=== PATIENT | male | born 1975 | race Hispanic/Latino ===

== ENCOUNTER 2018-03-07 14:51 | Inpatient (IN) | payer OTHER ==
[2018-03-07 14:57] VITALS: BMI 32.1
[2018-03-07] MEDS ORDERED: Sodium Chloride 0.9% 1,000 ML IV STA ×2 (15:11→17:06)
--- NOTE | 2018-03-07 15:34 | ED PDOC ---
Arrival/HPI - General Chief Complaint: GI Problem Time Seen by Provider: 03/07/18 15:10 Historian: Patient - History of Present Illness Narrative History of Present Illness (Text): 03/07/18 15:27 42yo male with pmhx of hypertension bib EMS for crampy pain. Patient states he has been having generalized crampy pain since this morning. Notes that he recently started going to the gym and took a diet pill yesterday for the first time. Notes the he vomited on his arrival to the Emergency department. States he feels better currently. Denies chest pain, SOB, diaphoresis, palpitation, CAMPUZANO, abdominal pain, diarrhea, constipation, fever, chills, headache, dizziness , focal weakness, any other complaint. Past Medical History - Provider Review Nursing Documentation Reviewed: Yes - Cardiac Hx Hypertension: Yes - Pulmonary Hx Respiratory Disorders: No - Neurological Hx Neurological Disorder: No - HEENT Hx HEENT Disorder: No - Renal Hx Renal Disorder: No - Endocrine/Metabolic Hx Endocrine Disorders: No - Hematological/Oncological Hx Blood Disorders: No - Musculoskeletal/Rheumatological Hx Arthritis: Yes (rt knee) - Gastrointestinal Hx Gastrointestinal Disorders: No - Genitourinary/Gynecological Hx Genitourinary Disorders: No - Psychiatric Hx Psychophysiologic Disorder: No Hx Substance Use: No Family/Social History - Physician Review Nursing Documentation Reviewed: Yes Family/Social History: Unknown Family HX Smoking Status: Never Smoked Hx Alcohol Use: No Hx Substance Use: No Allergies/Home Meds Allergies/Adverse Reactions: Allergies No Known Allergies Allergy (Verified 03/07/18 14:57) Review of Systems - Physician Review All systems were reviewed & negative as marked: Yes - Review of Systems Constitutional: Normal Eyes: Normal ENT: Normal Respiratory: Normal Cardiovascular: Normal Gastrointestinal: Nausea, Vomiting. absent: Abdominal Pain, Constipation, Diarrhea, Hematemesis Genitourinary Male: Normal Musculoskeletal: Other (Crampy pain) Skin: Normal Neurological: Normal Endocrine: Normal Hemo/Lymphatic: Normal Psychiatric: Normal Physical Exam Vital Signs Reviewed: Yes Vital Signs Temp Pulse Resp BP Pulse Ox 03/07/18 17:07 72 19 100 03/07/18 15:02 97.5 F L 93 H 22 151/74 H 97 Temperature: Afebrile Blood Pressure: Normal Pulse: Regular Respiratory Rate: Normal Appearance: Positive for: Well-Appearing, Non-Toxic, Comfortable Pain Distress: None Mental Status: Positive for: Alert and Oriented X 3 - Systems Exam Head: Present: Atraumatic, Normocephalic Pupils: Present: PERRL Extroacular Muscles: Present: EOMI Conjunctiva: Present: Normal Mouth: Present: Moist Mucous Membranes Neck: Present: Normal Range of Motion Respiratory/Chest: Present: Clear to Auscultation, Good Air Exchange. No: Respiratory Distress, Accessory Muscle Use Cardiovascular: Present: Regular Rate and Rhythm, Normal S1, S2. No: Murmurs Abdomen: Present: Other (Soft). No: Tenderness, Distention, Peritoneal Signs, Rebound, Guarding, McBurney's Point Tender, Rovsing's Sign Present Back: Present: Normal Inspection Upper Extremity: Present: Normal Inspection. No: Cyanosis, Edema Lower Extremity: Present: Normal Inspection. No: Edema Neurological: Present: GCS=15, CN II-XII Intact, Speech Normal, Motor Func Grossly Intact, Normal Sensory Function, Normal Cerebellar Funct, Memory Normal , Other (No focal neurological deficit) Skin: Present: Warm, Dry, Normal Color. No: Rashes Psychiatric: Present: Alert, Oriented x 3, Normal Insight, Normal Concentration Medical Decision Making ED Course and Treatment: 03/07/18 15:50 42 yo male bib for generalized crampy pain since morning. Vomited on arrival. Labs VBG Blood culture CAR, CPK 1L NS, Zofran, Pepcid Cardiac monitoring PT likely in rhabdo. EKG NSR @ 79bpm NSTEMI as read by me will reassess 03/07/18 17:35 Lab was reviewed. KELVIN with metabolic acidosis noted, leukocytosis, and elevated lactate was noted. Pt was tachypenic on arrival. He met the criteria for sepsis and it was called. Pt was hydrated with 2L of NS, pt in rhabdo and likely the cause of his KLEVIN. Potassium was repleted Broad spectrum abx was ordered Blood culture and urine culture pending Chest X-Ray NAD Pt will be admitted Case was DW Dr. Hobbs and she accepted pt to her service. Requested Dr. Merida consult. ICU Electronic System Engineer Dr. Solomon saw patient in Emergency department, but didn't take pt. Pt was admitted to Tele. - Lab Interpretations Lab Results: 03/07/18 15:00 03/07/18 15:00 Lab Results 03/07/18 16:40: pO2 48, VBG pH 7.41, VBG pCO2 36.0 L, VBG HCO3 22.8, VBG Total CO2 23.9, VBG O2 Sat (Calc) 81.0 H, VBG Base Excess -1.4 L, VBG Potassium 3.7, Glucose 126 H, Lactate 4.5 H*, FiO2 21.0, Sodium 141.0, Chloride 97.0 L, Venous Blood Potassium 3.7 03/07/18 15:00: Sodium 142, Potassium 3.2 L, Chloride 93 L, Carbon Dioxide 23, Anion Gap 29 H, BUN 41 H, Creatinine 3.8 H, Est GFR ( Amer) 21, Est GFR ( Non-Af Amer) 17, Random Glucose 190 H, Calcium 11.4 H, Total Bilirubin 1.0, AST 53, ALT 53, Alkaline Phosphatase 85, Lactate Dehydrogenase 681, Total Creatine Kinase 674 H, CK-MB (CK-2) 5.9 H, CK-MB (CK-2) % 0.9 L, Troponin I < 0.01, Total Protein 9.9 H, Albumin 5.7 H, Globulin 4.2, Albumin/Globulin Ratio 1.4, Amylase 98, Lipase 100 03/07/18 15:00: PT 11.0, INR 0.97, APTT 25.2 03/07/18 15:00: WBC 19.4 H, RBC 5.17, Hgb 16.6, Hct 46.3, MCV 89.6, MCH 32.1, MCHC 35.9, RDW 13.3, Plt Count 382, MPV 10.0, Gran % 75.0 H, Lymph % (Auto) 18.2 L, [place] % (Auto) 6.0, Eos % (Auto) 0.5 L, Baso % (Auto) 0.3, Gran # 14.56 H , Lymph # (Auto) 3.5 H, [place] # (Auto) 1.2 H, Eos # (Auto) 0.1, Baso # (Auto) 0.05 - RAD Interpretation Radiology Orders: 03/07/18 16:46 CHEST PORTABLE [RAD] Stat - Medication Orders Current Medication Orders: Sodium Chloride (Sodium Chloride 0.9%) 1,000 mls @ 999 mls/hr IV .Q1H1M STA Stop: 03/07/18 18:06 Last Admin: 03/07/18 17:23 Dose: 999 mls/hr eMAR Start Stop Document 03/07/18 17:23 [email or web address] (Rec: 03/07/18 17:23 [email or web address] [id number]) Intravenous Solution Start Date 03/07/18 Start Time 17:23 Vancomycin HCl (Vancomycin 1gm) 1 gm in 250 mls @ 167 mls/hr IVPB STAT STA PRN Reason: Protocol Stop: 03/07/18 18:30 Discontinued Medications Famotidine (Pepcid) 20 mg IVP STAT STA Stop: 03/07/18 15:11 Last Admin: 03/07/18 15:29 Dose: 20 mg IVP Administration Document 03/07/18 15:29 [email or web address] (Rec: 03/07/18 15:29 [email or web address] [id number]) Charges for Administration # of IVP Administrations 1 Sodium Chloride (Sodium Chloride 0.9%) 1,000 mls @ 999 mls/hr IV .Q1H1M STA Stop: 03/07/18 16:11 Last Admin: 03/07/18 15:29 Dose: 999 mls/hr eMAR Start Stop Document 03/07/18 15:29 [email or web address] (Rec: 03/07/18 15:29 [email or web address] [id number]) Intravenous Solution Start Date 03/07/18 Start Time 15:29 Piperacillin Sod/Tazobactam Sod (Zosyn 3.375 In Ns 100ml) 100 mls @ 200 mls/hr IVPB STAT STA PRN Reason: Protocol Stop: 03/07/18 17:34 Last Admin: 03/07/18 17:21 Dose: 200 mls/hr eMAR Start Stop Document 03/07/18 17:21 [email or web address] (Rec: 03/07/18 17:21 [email or web address] [id number]) Intravenous Solution Start Date 03/07/18 Start Time 17:21 Ondansetron HCl (Zofran Inj) 4 mg IVP STAT STA Stop: 03/07/18 15:11 Last Admin: 03/07/18 15:29 Dose: 4 mg IVP Administration Document 03/07/18 15:29 [email or web address] (Rec: 03/07/18 15:29 [email or web address] [id number]) Charges for Administration # of IVP Administrations 1 Potassium Chloride (K-Dur 20 Meq Er Tab) 40 meq PO STAT STA Stop: 03/07/18 16:22 Last Admin: 03/07/18 16:56 Dose: 40 meq Disposition/Present on Arrival - Present on Arrival Any Indicators Present on Arrival: No History of DVT/PE: No History of Uncontrolled Diabetes: No Urinary Catheter: No History of Decub. Ulcer: No History Surgical Site Infection Following: None - Disposition Have Diagnosis and Disposition been Completed?: Yes Diagnosis: Acute renal failure, Sepsis Disposition: HOSPITALIZED Disposition Time: 17:15 Patient Plan: Admission Patient Problems: Current Active Problems Problem Status Onset Acute renal failure Acute Sepsis Acute Condition: STABLE Discharge Instructions (ExitCare): Sepsis (ED) Referrals: PCP,NO [Primary Care Provider] - Follow up with primary Forms: [employer] - Social Platform (Hungarian)
[2018-03-07 15:56] LABS: ALB/GLOB RATIO 1.4 (1.1-1.8); ALBUMIN 5.7 g/dL (3.0-4.8); ALT/SGPT 53 U/L (7-56); AMYLASE 98 U/L (35-125); AST/SGOT 53 U/L (17-59); BLOOD UREA NITROGEN 41 mg/dL (7-21); CALCIUM 11.4 mg/dL (8.4-10.5); GFR AFRICAN-AMERICAN 21; GFR NON-AFRICAN AMERICAN 17; LIPASE 100 U/L (23-300)
[2018-03-07 15:57] LABS: BASO # 0.05 K/mm3 (0.0-2.0); BASO % 0.3 % (0.0-3.0); EOS # 0.1 (0.0-0.7); EOS % 0.5 % (1.5-5.0); GRAN # 14.56 (1.4-6.5); HEMOGLOBIN 16.6 g/dL (14.0-18.0); LYMPH # 3.5 (1.2-3.4); LYMPH % 18.2 % (22.0-35.0); MEAN CELL VOLUME 89.6 fl (80.0-105.0); MEAN CORPUSCULAR HEMOGLOBIN 32.1 pg (25.0-35.0); MEAN CORPUSCULAR HGB CONC 35.9 g/dl (31.0-37.0); MONO # 1.2 (0.1-0.6); RBC 5.17 10^6/uL (3.5-6.1); RED CELL DISTRIBUTION WIDTH 13.3 % (11.5-14.5); WHITE BLOOD COUNT 19.4 10^3/ul (4.5-11.0)
[2018-03-07 16:01] LABS: INR 0.97; PARTIAL THROMBOPLASTIN TIME 25.2 Seconds (25.1-36.5)
[2018-03-07 16:07] LABS: TROPONIN I < 0.01 ng/mL
[2018-03-07 16:15] LABS: CK MB% 0.9 % (2.5-3.0); CK-MB 5.9 ng/mL (0.0-3.6)
[2018-03-07] MEDS ORDERED: Potassium Chloride 20 mEq ER Tab PO STA (16:21)
[2018-03-07 16:50] LABS: VENOUS BLOOD GAS BASE EXCESS -1.4 mmol/L (0.0-2.0); VENOUS BLOOD GAS PO2 48 mm/Hg (30-55); VENOUS BLOOD PH 7.41 (7.32-7.43)
[2018-03-07] MEDS ORDERED: Vancomycin 1gm in NS 250ml 1 GM/250 ML BAG IVPB STA (17:01)
[2018-03-07] MEDS ORDERED: Piperacillin/Tazobact 3.375 gm 100 ML IVPB STA (17:05)
--- NOTE | 2018-03-07 17:52 | CP.PCM.CON ---
<Willow Coffey - Last Filed: 03/07/18 17:41> History of Present Illness - History of Present Illness History of Present Illness: Willow Coffey, PGY-1 ICU Consult Note This is a 42 year old male with PMH of HT, spinal stenosis and chronic back pain presenting to the ER for muscle cramping, nausea, and vomiting. 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 He also has started going to the gym over the last week performing aerobic exercises for 30-40 minutes. Additionally, he began taking diet pills recently. He states he has been drinking clear water throughout the day but denies drinking beverages with electrolytes. In the ED, he was given one liter of NS, pepcid, zofran and potassium chloride. He is currently asymptomatic and denies CP, palpitations, SOB, muscle cramps, numbness , tingling, urinary complaints, fevers, chills, nausea, vomiting and headaches. 12 point ROS noted here, otherwise unremarkable. PMH: as above SH: former smoker, quit 4 years ago. Smoked 1 ppd for 23 years. Currently drinks 2-3 beers per day Sx: right leg ACL repair FH: father had prostate cancer, grandfather had stomach cancer, hypertension in family Meds: as per MAR Past Patient History - Past Social History Smoking Status: Never Smoked - CARDIAC Hx Hypertension: Yes - PULMONARY Hx Respiratory Disorders: No - NEUROLOGICAL Hx Neurological Disorder: No - HEENT Hx HEENT Problems: No - RENAL Hx Chronic Kidney Disease: No - ENDOCRINE/METABOLIC Hx Endocrine Disorders: No - HEMATOLOGICAL/ONCOLOGICAL Hx Blood Disorders: No - MUSCULOSKELETAL/RHEUMATOLOGICAL Hx Arthritis: Yes (rt knee) - GASTROINTESTINAL Hx Gastrointestinal Disorders: No - GENITOURINARY/GYNECOLOGICAL Hx Genitourinary Disorders: No - PSYCHIATRIC Hx Psychophysiologic Disorder: No Hx Substance Use: No - SURGICAL HISTORY Hx Surgeries: No Meds Allergies/Adverse Reactions: Allergies Allergy/AdvReac Type Severity Reaction Status Date / Time No Known Allergies Allergy Verified 03/07/18 14:57 - Medications Medications: Current Medications Sodium Chloride (Sodium Chloride 0.9%) 1,000 mls @ 999 mls/hr IV .Q1H1M STA Stop: 03/07/18 18:06 Last Admin: 03/07/18 17:23 Dose: 999 mls/hr Vancomycin HCl (Vancomycin 1gm) 1 gm in 250 mls @ 167 mls/hr IVPB STAT STA PRN Reason: Protocol Stop: 03/07/18 18:30 Physical Exam - Head Exam Head Exam: ATRAUMATIC, NORMAL INSPECTION - Eye Exam Eye Exam: EOMI Pupil Exam: PERRL - ENT Exam ENT Exam: Mucous Membranes Dry - Neck Exam Neck exam: Positive for: Normal Inspection - Respiratory Exam Respiratory Exam: Clear to Auscultation Bilateral, NORMAL BREATHING PATTERN - Cardiovascular Exam Cardiovascular Exam: RRR, +S1, +S2. absent: Tachycardia - GI/Abdominal Exam GI & Abdominal Exam: Normal Bowel Sounds, Soft. absent: Firm, Guarding - Extremities Exam Extremities exam: Positive for: normal inspection, pedal pulses present - Back Exam Back exam: NORMAL INSPECTION. absent: CVA tenderness (L), CVA tenderness (R) - Neurological Exam Neurological exam: Alert, CN II-XII Intact, Oriented x3 - Psychiatric Exam Psychiatric exam: Normal Affect - Skin Skin Exam: Dry, Normal Color Results - Vital Signs Recent Vital Signs: Last Vital Signs Temp 97.5 F L 03/07/18 15:02 Pulse 72 03/07/18 17:07 Resp 19 03/07/18 17:07 BP 151/74 H 03/07/18 15:02 Pulse Ox 100 03/07/18 17:07 - Labs Result Diagrams: 03/07/18 15:00 03/07/18 15:00 Labs: Laboratory Results - last 24 hr 03/07/18 03/07/18 03/07/18 15:00 15:00 15:00 WBC 19.4 H RBC 5.17 Hgb 16.6 Hct 46.3 MCV 89.6 MCH 32.1 MCHC 35.9 RDW 13.3 Plt Count 382 MPV 10.0 Gran % 75.0 H Lymph % (Auto) 18.2 L [place] % (Auto) 6.0 Eos % (Auto) 0.5 L Baso % (Auto) 0.3 Gran # 14.56 H Lymph # (Auto) 3.5 H [place] # (Auto) 1.2 H Eos # (Auto) 0.1 Baso # (Auto) 0.05 PT 11.0 INR 0.97 APTT 25.2 pO2 VBG pH VBG pCO2 VBG HCO3 VBG Total CO2 VBG O2 Sat (Calc) VBG Base Excess VBG Potassium Glucose Lactate FiO2 Sodium 142 Potassium 3.2 L Chloride 93 L Carbon Dioxide 23 Anion Gap 29 H BUN 41 H Creatinine 3.8 H Est GFR ( Amer) 21 Est GFR (Non-Af Amer) 17 Random Glucose 190 H Calcium 11.4 H Total Bilirubin 1.0 AST 53 ALT 53 Alkaline Phosphatase 85 Lactate Dehydrogenase 681 Total Creatine Kinase 674 H CK-MB (CK-2) 5.9 H CK-MB (CK-2) % 0.9 L Troponin I < 0.01 Total Protein 9.9 H Albumin 5.7 H Globulin 4.2 Albumin/Globulin Ratio 1.4 Amylase 98 Lipase 100 Venous Blood Potassium 03/07/18 16:40 WBC RBC Hgb Hct MCV MCH MCHC RDW Plt Count MPV Gran % Lymph % (Auto) [place] % (Auto) Eos % (Auto) Baso % (Auto) Gran # Lymph # (Auto) [place] # (Auto) Eos # (Auto) Baso # (Auto) PT INR APTT pO2 48 VBG pH 7.41 VBG pCO2 36.0 L VBG HCO3 22.8 VBG Total CO2 23.9 VBG O2 Sat (Calc) 81.0 H VBG Base Excess -1.4 L VBG Potassium 3.7 Glucose 126 H Lactate 4.5 H* FiO2 21.0 Sodium 141.0 Potassium Chloride 97.0 L Carbon Dioxide Anion Gap BUN Creatinine Est GFR ( Amer) Est GFR (Non-Af Amer) Random Glucose Calcium Total Bilirubin AST ALT Alkaline Phosphatase Lactate Dehydrogenase Total Creatine Kinase CK-MB (CK-2) CK-MB (CK-2) % Troponin I Total Protein Albumin Globulin Albumin/Globulin Ratio Amylase Lipase Venous Blood Potassium 3.7 Assessment & Plan - Assessment and Plan (Free Text) Assessment: This is a 42 year old male with PMH of HT, spinal stenosis and chronic back pain being consulted by the ICU team for KELVIN secondary to rhabdomyolysis secondary to dehydration/heat exhaustion/aerobic exercise. Plan: Neuro: -maintain normothermia -AAO x3, moving extremities spontaneously past midline Cardio: -maintain MAP>65 -currently not tachycardic, with pulse in the 70s Lungs: -SaO2 >90% -supplementary O2 PRN -CXR pending Renal: -maintain euvolemia -avoid nephrotoxic agents, hypochloremia -replace electrolytes as needed. Potassium given for hypokalemia -BUN/Cr is 41/3.8. KELVIN secondary to rhabdomyolysis. Will likely resolve with fluids -VBG shows lactate of 4.5. Will monitor Heme: -Hg today is 16.6 WNL Endo: -maintain euglycemia ID: -WBC is 19.4 today, afebrile. Will monitor -blood culture pending -GI: -LFT's WNL -Currently NPO <KirstenalyPatrick - Last Filed: 03/07/18 18:16> Meds - Medications Medications: Current Medications Acetaminophen (Tylenol 325mg Tab) 650 mg PO Q6H PRN PRN Reason: Fever >100.4 F Vancomycin HCl (Vancomycin 1gm) 1 gm in 250 mls @ 167 mls/hr IVPB STAT STA PRN Reason: Protocol Stop: 03/07/18 18:30 Dextrose/Sodium Chloride (Dextrose 5%/0.45% Ns 1000 Ml) 1,000 mls @ 150 mls/hr IV .Q6H40M VALERIE Ondansetron HCl (Zofran Inj) 4 mg IVP Q6H PRN PRN Reason: Nausea/Vomiting Pantoprazole Sodium (Protonix Ec Tab) 40 mg PO 0630 VALERIE Results - Vital Signs Recent Vital Signs: Last Vital Signs Temp 97.9 F 03/07/18 18:05 Pulse 72 03/07/18 18:05 Resp 18 03/07/18 18:05 BP 116/69 03/07/18 18:05 Pulse Ox 99 03/07/18 18:05 - Labs Result Diagrams: 03/07/18 15:00 03/07/18 15:00 Attending/Attestation - Attestation I have personally seen and examined this patient.: Yes I have fully participated in the care of the patient.: Yes I have reviewed all pertinent clinical information: Yes Notes (Text): 03/07/18 18:11 The patient was seen and examined at the bedside. Patient care was discussed with resident Medical records, lab studies, and imaging were reviewed and management issues were discussed and formulated. Agree with above treatment plans as outlined in 's note with addition of the following: KELVIN \\ Rhabdomyolisis \\ Dehydration \\ Electrolite Abnormalities \\ -hemodynamic monitoring to maintain MAP>65; currently stable -f\\u serial ECG and CE -o2 supplementation to maintain Spo2>90 Pao2>60; currently comfortable on room air -f\\u Bun\\Cr and U\\o; continue IVF with NS -renal team eval; monitor and replace e-lites; renal US -PO diet as tolerated and aspiration precautions -f\\u CPK -DVT prophylaxis Patient remains hemodynamically stable in no respiratory distress , comfortably speaking full sentences on room air when examined. The "cramps" which caused pt to initially present to ED have now resolved. Pt will not benefit from ICU level of care at this time. Please reconsult if condition changes or necessary
--- NOTE | 2018-03-07 18:34 | RAD ---
Date of service: 03/07/2018 HISTORY: admission COMPARISON: No prior. FINDINGS: LUNGS: No active pulmonary disease. PLEURA: No significant pleural effusion identified, no pneumothorax apparent. CARDIOVASCULAR: Normal. OSSEOUS STRUCTURES: No significant abnormalities. VISUALIZED UPPER ABDOMEN: Normal. OTHER FINDINGS: None. IMPRESSION: No active disease.
[2018-03-07 18:39] LABS: HDL CHOLESTEROL 70 mg/dL (29-60)
[2018-03-07 18:49] LABS: LDL CHOLESTEROL 150 mg/dL (0-129)
[2018-03-07] MEDS: Dextrose 5%/0.45% NS 1,000 ML IV SCH (20:28)
[2018-03-07 20:33] LABS: VENOUS BLOOD GAS BASE EXCESS 2.2 mmol/L (0.0-2.0); VENOUS BLOOD GAS PO2 27 mm/Hg (30-55); VENOUS BLOOD PH 7.37 (7.32-7.43)
[2018-03-07 20:50] LABS: URINE BILIRUBIN NEGATIVE (NEGATIVE); URINE BLOOD MODERATE (NEGATIVE); URINE GLUCOSE (UA) NEGATIVE (NEGATIVE); URINE LEUKOCYTE ESTERASE NEGATIVE Leu/uL (NEGATIVE); URINE PROTEIN 30 mg/dL (<30 mg/dL); URINE UROBILINOGEN 0.2 E.U./dL (<1 E.U./dL)
[2018-03-07 21:14] LABS: URINE APPEARANCE CLEAR (CLEAR); URINE COLOR YELLOW (YELLOW)
[2018-03-07 21:54] LABS: URINE BACTERIA SMALL (NEG); URINE EPITHELIAL CELLS 0 - 2 /hpf (0-5)
[2018-03-07] MEDS ORDERED: Pneumococcal 23-Valent Vaccine IM ONE (22:42)
--- NOTE | 2018-03-08 01:01 | PCM.SEPTIC ---
Sepsis Progress Note - Reassessment Type Date of Evaluation: 03/08/18 Time of Evaluation: 01:00 Reassessment Type: Non-invasive reassessment - Non Invasive Reassessment Were the most recent vital sign reviewed: Yes Vital Sign (Latest): Temp Pulse Resp BP Pulse Ox 97.8 F 64 18 109/66 98 03/08/18 00:01 03/08/18 00:01 03/08/18 00:01 03/08/18 00:01 03/08/18 00:01 Cardiovascular: Yes: Regular Rate, Rhythm Respiratory: Yes: Normal Breath Sounds Capillary Refill: Normal (Less than 2 sec) Pulses: Normal Radial Skin: Normal Color
--- NOTE | 2018-03-08 02:00 | HP ---
Copied To: Mi Hobbs MD Attending MD: Mi Hobbs MD HISTORY OF PRESENT ILLNESS: The patient is 42 years old, who works in [employer] and while at work, he felt very weak, dizzy, generalized body aches and pains since this morning. Denies any nausea or vomiting. Does admit taking some diet pill and recently he get involved in some exercise program and he started since yesterday. He does complain of some abdominal discomfort, feeling nauseous and did vomit once while he was in emergency room. No history of fever or chills. No history of hemoptysis. No hematemesis. No chest pain. No shortness of breath. PAST MEDICAL HISTORY: Significant for hypertension. ALLERGIES: HE IS NOT ALLERGIC TO ANY MEDICATIONS. MEDICATIONS: He did not take any medicine at home except diet pill. SOCIAL HISTORY: Denies smoking, drinking or alcohol use. REVIEW OF SYSTEMS: Significant for generalized aches and pain. PHYSICAL EXAMINATION: GENERAL: He is awake, alert, oriented, communicative. VITAL SIGNS: He is afebrile, pulse 72, respirations 22, blood pressure 151/74. LABORATORY DATA: PT 11, INR 0.97. Chemistry: Sodium 142, potassium 3.2, chloride 93, CO2 of 23, BUN 41, creatinine 3.8. Blood sugar of 190. Calcium 11.4. CPK 674, MB 5.9. test is unremarkable. ASSESSMENT: 1. Acute renal failure. 2. Hypokalemia. 3. CPK is 674, mild rhabdomyolysis. PLAN: We will start patient on IV fluid. We will start him on 50 mL of IV fluid. Potassium has been supplemented. We will follow up CBC, CMP in a.m. Nephrology consult by Dr. Merida has been requested. Mi Hobbs MD
[2018-03-08] MEDS: Dextrose 5%/0.45% NS 1,000 ML IV SCH ×4 (02:37→14:00)
[2018-03-08 06:00] VITALS: O2SAT 95
[2018-03-08] MEDS ORDERED: Pantoprazole 40 mg EC Tab PO SCH (06:30)
[2018-03-08 07:24] LABS: ALB/GLOB RATIO 1.4 (1.1-1.8); ALBUMIN 4.3 g/dL (3.0-4.8); BASO # 0.03 K/mm3 (0.0-2.0); BASO % 0.3 % (0.0-3.0); CALCIUM 9.1 mg/dL (8.4-10.5); EOS # 0.2 (0.0-0.7); EOS % 1.9 % (1.5-5.0); GRAN # 7.73 (1.4-6.5); GRAN % 69.3 % (50.0-68.0); HEMOGLOBIN 14.3 g/dL (14.0-18.0); LYMPH # 1.9 (1.2-3.4); LYMPH % 17.1 % (22.0-35.0); MEAN CELL VOLUME 90.7 fl (80.0-105.0); MEAN CORPUSCULAR HEMOGLOBIN 30.8 pg (25.0-35.0); MEAN PLATELET VOLUME 9.6 fl (7.0-11.0); MONO # 1.3 (0.1-0.6); MONO % 11.4 % (1.0-6.0); RBC 4.64 10^6/uL (3.5-6.1); RED CELL DISTRIBUTION WIDTH 13.6 % (11.5-14.5); WHITE BLOOD COUNT 11.1 10^3/ul (4.5-11.0)
[2018-03-08 07:39] LABS: FREE T4 1.04 ng/dL (0.78-2.19)
[2018-03-08] MEDS ORDERED: Sodium Chloride 0.9% 1,000 ML IV SCH (13:15)
[2018-03-08 13:50] VITALS: BP 130/75; RESP 18; TEMP 98
--- NOTE | 2018-03-08 14:27 | CP.PCM.CON ---
History of Present Illness - History of Present Illness History of Present Illness: Patient being seen for Dr. 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 and sweats profusely; he also started going to the gym daily; patient also reports taking protein supplements in place of some of his meals as well as some other supplements lately; He also continued to take his anti-htn med lisinopril-hctz (hctz component was added due to leg swelling that subsequently resolved); He otherwise denies any vomiting (other than single episode on day of presentation) or diarrhea; he denies taking any illicit drugs; Review of Systems - Constitutional Constitutional: absent: Anorexia - EENT Eyes: absent: Change in Vision - Cardiovascular Cardiovascular: absent: Chest Pain, Palpitations - Respiratory Respiratory: absent: Dyspnea - Gastrointestinal Gastrointestinal: As Per HPI - Genitourinary Additional comments: No decrease in urination; - Musculoskeletal Musculoskeletal: As Per HPI - Integumentary Integumentary: absent: Pruritus, Rash - Neurological Neurological: absent: Dizziness, Numbness - Psychiatric Psychiatric: Anxiety Past Patient History - Past Medical History & Family History Past Medical History?: Yes Pertinent Family History: htn - Past Social History Smoking Status: Former Smoker - CARDIAC Hx Cardiac Disorders: Yes Hx Hypertension: Yes - PULMONARY Hx Respiratory Disorders: Yes (USED TO SMOKE 1 PPD FOR 23 YRS. QUIT 4 YRS AGO.) - NEUROLOGICAL Hx Neurological Disorder: No - HEENT Hx HEENT Problems: No - RENAL Hx Chronic Kidney Disease: No - ENDOCRINE/METABOLIC Hx Endocrine Disorders: No - HEMATOLOGICAL/ONCOLOGICAL Hx Blood Disorders: No - MUSCULOSKELETAL/RHEUMATOLOGICAL Hx Musculoskeletal Disorders: (RIGHT LEG ACL REPAIR) Hx Arthritis: Yes (rt knee) Hx Falls: No Hx Spinal Stenosis: Yes - GASTROINTESTINAL Hx Gastrointestinal Disorders: No - GENITOURINARY/GYNECOLOGICAL Hx Genitourinary Disorders: No - PSYCHIATRIC Hx Psychophysiologic Disorder: No Hx Substance Use: No - SURGICAL HISTORY Hx Surgeries: Yes (RIGHT LEG ACL REPAIR.) Meds Allergies/Adverse Reactions: Allergies Allergy/AdvReac Type Severity Reaction Status Date / Time erythromycin base Allergy URTICARIA Verified 03/07/18 22:27 - Medications Medications: Current Medications Acetaminophen (Tylenol 325mg Tab) 650 mg PO Q6H PRN PRN Reason: Fever >100.4 F Sodium Chloride (Sodium Chloride 0.9%) 1,000 mls @ 150 mls/hr IV .[id number] VALERIE Last Admin: 03/08/18 13:15 Dose: 150 mls/hr Ondansetron HCl (Zofran Inj) 4 mg IVP Q6H PRN PRN Reason: Nausea/Vomiting Physical Exam - Constitutional Appears: Well, Non-toxic, No Acute Distress - Eye Exam Eye Exam: Normal appearance. absent: Scleral icterus - ENT Exam ENT Exam: Mucous Membranes Moist - Respiratory Exam Respiratory Exam: Clear to Auscultation Bilateral. absent: Respiratory Distress - Cardiovascular Exam Cardiovascular Exam: RRR, +S1, +S2 - GI/Abdominal Exam GI & Abdominal Exam: Soft. absent: Distended, Tenderness - Exam Exam: absent: Bladder Distension - Extremities Exam Extremities exam: Positive for: pedal pulses present. Negative for: pedal edema - Neurological Exam Neurological exam: Alert, Oriented x3 - Psychiatric Exam Psychiatric exam: Normal Affect, Normal Mood - Skin Skin Exam: Normal Color, Warm Results - Vital Signs Recent Vital Signs: Last Vital Signs Temp 98 F 03/08/18 12:00 Pulse 65 03/08/18 12:00 Resp 18 03/08/18 12:00 BP 130/75 03/08/18 12:00 Pulse Ox 95 03/08/18 05:59 - Labs Result Diagrams: 03/08/18 06:00 03/08/18 06:00 Labs: Laboratory Results - last 24 hr 03/07/18 03/07/18 03/08/18 20:27 20:36 06:00 WBC 11.1 H D RBC 4.64 Hgb 14.3 D Hct 42.1 MCV 90.7 MCH 30.8 MCHC 34.0 RDW 13.6 Plt Count 276 MPV 9.6 Gran % 69.3 H Lymph % (Auto) 17.1 L Evangeline % (Auto) 11.4 H Eos % (Auto) 1.9 Baso % (Auto) 0.3 Gran # 7.73 H Lymph # (Auto) 1.9 Evangeline # (Auto) 1.3 H Eos # (Auto) 0.2 Baso # (Auto) 0.03 pO2 27 L VBG pH 7.37 VBG pCO2 49.0 VBG HCO3 28.3 H VBG Total CO2 29.8 H VBG O2 Sat (Calc) 49.9 VBG Base Excess 2.2 H VBG Potassium 4.5 Sodium 137.0 Chloride 100.0 Glucose 108 Lactate 1.0 FiO2 21.0 Potassium Carbon Dioxide Anion Gap BUN Creatinine Est GFR ( Amer) Est GFR (Non-Af Amer) Random Glucose Calcium Phosphorus Magnesium Total Bilirubin AST ALT Alkaline Phosphatase Total Protein Albumin Globulin Albumin/Globulin Ratio Free T4 TSH 3rd Generation Venous Blood Potassium 4.5 Urine Color Yellow Urine Appearance Clear Urine pH 6.0 Ur Specific [place] 1.025 Urine Protein 30 H Urine Glucose (UA) Negative Urine Ketones Negative Urine Blood Moderate H Urine Nitrate Negative Urine Bilirubin Negative Urine Urobilinogen 0.2 Ur Leukocyte Esterase Negative Urine RBC 5 - 10 Urine WBC 1 - 3 Ur Epithelial Cells 0 - 2 Urine Bacteria Small Urine Other Mucus 03/08/18 03/08/18 06:00 06:00 WBC RBC Hgb Hct MCV MCH MCHC RDW Plt Count MPV Gran % Lymph % (Auto) Evangeline % (Auto) Eos % (Auto) Baso % (Auto) Gran # Lymph # (Auto) Evangeline # (Auto) Eos # (Auto) Baso # (Auto) pO2 VBG pH VBG pCO2 VBG HCO3 VBG Total CO2 VBG O2 Sat (Calc) VBG Base Excess VBG Potassium Sodium 139 Chloride 99 Glucose Lactate FiO2 Potassium 3.7 Carbon Dioxide 29 Anion Gap 15 BUN 36 H Creatinine 2.0 H Est GFR ( Amer) 44 Est GFR (Non-Af Amer) 37 Random Glucose 99 Calcium 9.1 Phosphorus 3.3 Magnesium 2.2 Total Bilirubin 0.7 AST 42 ALT 49 Alkaline Phosphatase 51 Total Protein 7.4 Albumin 4.3 Globulin 3.1 Albumin/Globulin Ratio 1.4 Free T4 1.04 TSH 3rd Generation 0.66 Venous Blood Potassium Urine Color Urine Appearance Urine pH Ur Specific [place] Urine Protein Urine Glucose (UA) Urine Ketones Urine Blood Urine Nitrate Urine Bilirubin Urine Urobilinogen Ur Leukocyte Esterase Urine RBC Urine WBC Ur Epithelial Cells Urine Bacteria Urine Other - Imaging and Cardiology US - abdomen Status: Image reviewed by me Additional comment: no hydronephrosis, normal echogenicity; Assessment & Plan (1) Acute kidney injury Assessment and Plan: Resolving; pre-renal etiology in the setting of marked volume depletion from insensible losses, diuretic and inadequate PO intake, exacerbated by loss of renal autoregulation due to being on RASHAD inhibitor; renal function improving with volume replenishment; -Continue IVF, will change to NS at 150 cc/hr as BP currently controlled and patient tolerating diet well; -Agree with holding anti-htn agent (see below with regard to chronic htn); -Checking urine lytes looking for resolution of volume depletion; -Patient advised to cut back on protein supplementation and hold other supplements until we can ascertain their contents/side effects (high protein intake may cause solute diuresis and contribute to volume depletion); -If repeat labs this afternoon continue to show improvement in renal function, patient is stable for discharge from renal perspective; Status: Acute (2) Rhabdomyolysis Assessment and Plan: Relatively mild; checking UDS to look for contributing factors; continue IVF; Status: Acute (3) HTN (hypertension) Assessment and Plan: Currently normotensive; given patient's physically strenuous occupation and propensity for becoming volume depleted, will recommend against using RASHAD inhibitor for htn unless there is some other need for it (eg. proteinuria); likewise, should hold diuretics; consider amlodipine 5 mg daily as an alternative; for now, should hold all anti-htn agents and monitor home BP; can f /u with PMD in 10 days; Status: Chronic (4) Metabolic acidosis Assessment and Plan: High anion gap metabolic acidosis from lactic acidosis in the setting of volume depletion, resolved; continue IVF; Status: Resolved
[2018-03-08 15:13] LABS: CREATININE,RANDOM URINE 101 mg/dL
[2018-03-08 15:36] LABS: BARBITURATES, UR NEGATIVE (NEGATIVE); BENZODIAZEPINES, UR NEGATIVE (NEGATIVE); OPIATES, UR NEGATIVE (NEGATIVE); PHENCYCLIDINE, UR NEGATIVE (NEGATIVE)
[2018-03-08 16:15] VITALS: PULSE 64
[2018-03-08 16:25] LABS: ALB/GLOB RATIO 1.5 (1.1-1.8); ALBUMIN 4.5 g/dL (3.0-4.8); ALT/SGPT 42 U/L (7-56); AST/SGOT 48 U/L (17-59); BLOOD UREA NITROGEN 30 mg/dL (7-21); CALCIUM 9.2 mg/dL (8.4-10.5); GFR AFRICAN-AMERICAN > 60; GFR NON-AFRICAN AMERICAN 55
--- NOTE | 2018-03-08 17:22 | US ---
Date of service: 03/07/2018 PROCEDURE: Ultrasound of the Kidneys HISTORY: Acute renal failure COMPARISON: None available. TECHNIQUE: Sonogram of the kidneys. FINDINGS: RIGHT KIDNEY: Measures: 10.7 x 5.0 x 6.7 cm. Normal in size, contour and echogenicity. No stone, solid mass lesion or hydronephrosis visualized. LEFT KIDNEY: Measures: 11.1 x 6.0 x 5.9 cm. Normal in size, contour and echogenicity. No stone, solid mass lesion or hydronephrosis visualized. OTHER FINDINGS: None. IMPRESSION: Unremarkable renal sonogram.
--- NOTE | 2018-03-08 18:08 | DS ---
Copied To: Mi Hobbs MD Attending MD: Mi Hobbs MD HISTORY OF PRESENT ILLNESS: The patient is 42 years old, who was admitted after he had bad cramping, generalized body aches and pain. He was found to be in acute renal failure. 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 He admits drinking a lot of fluid, but without electrolyte. He has been involved in exercise to tune up his body because he want to burn fat and he takes some [id number] fat burners. He states he feels a lot better. PHYSICAL EXAMINATION: VITAL SIGNS: He is afebrile, pulse 59, respirations 20, blood pressure 115/72. LUNGS: Bilateral fair airflow. No rhonchi or crackle. HEART: S1 and S2 audible. ABDOMEN: Soft. Nontender. No rebound. No guarding. NEUROLOGICAL: The patient is awake, alert, oriented, communicative, ambulatory. LABORATORY EXAM: WBC 11.1, hemoglobin 14, hematocrit 42, platelet 276. Chemistry: Sodium 139, potassium 3.7, chloride 99, CO2 of 29, BUN 36, creatinine 2, blood sugar of 99, calcium 11.4, CPK is 674, cholesterol 274, LDL 150. Urine shows moderate blood, but no rbc's. Renal ultrasound is pending. ASSESSMENT: 1. Acute renal failure. 2. Dehydration. 3. Mild rhabdomyolysis. PLAN: We will continue the patient on IV fluid. We will repeat another Lehman-7 around 4 o'clock. The patient states he has to go home. Awaiting nephrology evaluation. We will follow up renal ultrasound. If his creatinine is trending down, will be discharged later on today after seen by printed circuit boards router. Mi Hobbs MD
--- NOTE | 2018-03-09 11:24 | CARD ---
APPROVED REPORT Date of service: 03/07/2018 EKG Measurement Heart [id number] <Conclusion> Normal sinus rhythm Possible Left atrial enlargement Borderline ECG
== END 2018-03-08 19:00 | disposition home or self-care (01) | DRG 872 ==
LOC: ED 14:51 → ERH 17:26 → 2RSO 20:06
PROVIDERS: ADMIT Internal Medicine; ATTEND Internal Medicine
DX: A41.9 Sepsis, unspecified organism (principal); N17.9 Acute kidney failure, unspecified; E87.2 Acidosis; M62.82 Rhabdomyolysis; E87.6 Hypokalemia; E86.0 Dehydration; I10 Essential (primary) hypertension; Z87.891 Personal history of nicotine dependence; Z82.49 Family history of ischemic heart disease and other diseases of the circulatory system; Z80.42 Family history of malignant neoplasm of prostate; Z80.0 Family history of malignant neoplasm of digestive organs